=== PATIENT | male | born 1995 | race Caucasian/White ===

== ENCOUNTER 2018-10-19 17:41 | Emergency (ER) | payer MEDICAID ==
[~2018-10-19] VITALS: Ht 177.8 cm; Wt 107.0 kg
[2018-10-19] MEDS ORDERED: ketorolac trometh inj. 60 MG/2 ML VIAL IM ONE (18:05)
[2018-10-19] MEDS ORDERED: IBUP-1986 PO (18:32)
[2018-10-19] MEDS ORDERED: ORPH100T2 PO (18:32)
[2018-10-19 18:45] VITALS: BP 140/84
== END 2018-10-19 18:47 | disposition home or self-care (01) ==
LOC: ER 17:42
DX: M54.5 Low back pain (principal); F10.99 Alcohol use, unspecified with unspecified alcohol-induced disorder; Z79.899 Other long term (current) drug therapy; Y90.9 Presence of alcohol in blood, level not specified
CPT/HCPCS: 96372; 99283; J1885

== ENCOUNTER 2022-10-09 11:28 | Emergency (ER) | payer MEDICAID, OTHER ==
[~2022-10-09] VITALS: Ht 177.8 cm; Wt 110.0 kg
[~2022-10-09 11:28] MED LIST: IBUP-1986 PO; ORPH100T4 PO
--- NOTE | 2022-10-09 11:29 | NUR ---
pt brought to rm 4 with rescue meds epi 0.3 and bendaryl, pt showing sob allergic reacton to wasp approx [address] lange at bedside.
--- NOTE | 2022-10-09 11:32 | NUR ---
recue meds not given awaiting Dr. Taylor orders.
[2022-10-09] MEDS ORDERED: normal saline 1000ML IV soln IVB STA (11:36)
[2022-10-09] MEDS ORDERED: diphenhydrAMINE 50 mg/ml inj IV ONE (11:40)
[2022-10-09] MEDS ORDERED: methylPREDNISolone sod succ 125mg/2ml vial IV ONE (11:40)
[2022-10-09] MEDS ORDERED: famotidine/PF 10 mg/ml inj IV ONE (11:40)
--- NOTE | 2022-10-09 12:04 | NUR ---
pt here with with employer [employer] [facility] [address] [facility] [id number] [phone]
--- NOTE | 2022-10-09 12:05 | NUR ---
work comp policy [id number]
[2022-10-09 12:12] VITALS: BP 115/72; PULSE 73; RESP 16; O2SAT 100
[2022-10-09 13:53] VITALS: TEMP 97.8
== END 2022-10-09 14:02 | disposition home or self-care (01) ==
LOC: ER 11:28
DX: S70.362A Insect bite (nonvenomous), left thigh, initial encounter (principal); W57.XXXA Bitten or stung by nonvenomous insect and other nonvenomous arthropods, initial encounter; Y93.89 Activity, other specified; Y92.89 Other specified places as the place of occurrence of the external cause; Y99.8 Other external cause status
CPT/HCPCS: 96374; 96375; 99291; J1200; J2930; J3490; J7030

== ENCOUNTER 2022-10-12 16:26 | Emergency (ER) | payer OTHER ==
[~2022-10-12] VITALS: Ht 177.8 cm; Wt 100.0 kg
[2022-10-12 16:41] VITALS: BP 137/92; PULSE 79; RESP 15; TEMP 97; O2SAT 99
--- NOTE | 2022-10-12 17:00 | NUR ---
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
== END 2022-10-12 17:58 | disposition home or self-care (01) ==
LOC: ER 16:27
DX: S80.211A Abrasion, right knee, initial encounter (principal); W19.XXXA Unspecified fall, initial encounter; Y93.89 Activity, other specified; Y92.89 Other specified places as the place of occurrence of the external cause; Y99.8 Other external cause status
CPT/HCPCS: 73560; 99284